=== PATIENT | male | born 1950 | race Caucasian/White ===

== ENCOUNTER → 2016-10-03 | Outpatient (CLI) | payer OTHER, MEDICAID | LOC: BHCLAF 10:15 | PROVIDERS: ATTEND Internal Medicine Cardiovascular Disease | DX: I25.10 Atherosclerotic heart disease of native coronary artery without angina pectoris (principal); I42.9 Cardiomyopathy, unspecified | CPT/HCPCS: 93005-PO ==

== ENCOUNTER → 2016-10-08 | Outpatient (CLI) | payer OTHER, MEDICAID | LOC: BHCLAF 09:15 | PROVIDERS: ATTEND Internal Medicine Cardiovascular Disease | DX: I42.9 Cardiomyopathy, unspecified (principal); I25.10 Atherosclerotic heart disease of native coronary artery without angina pectoris | CPT/HCPCS: 93306-PO ==

== ENCOUNTER → 2016-10-10 | Outpatient (CLI) | payer OTHER, MEDICAID | LOC: BHFA 11:30 | PROVIDERS: ATTEND Internal Medicine | DX: Z01.818 Encounter for other preprocedural examination (principal); I25.10 Atherosclerotic heart disease of native coronary artery without angina pectoris; I42.9 Cardiomyopathy, unspecified | CPT/HCPCS: 78452; 93017; 93306; A9500; J2785 ==

== ENCOUNTER → 2017-02-22 | Outpatient (CLI) | payer OTHER, MEDICAID | LOC: CIMAGING 10:14 | PROVIDERS: ATTEND Internal Medicine Cardiovascular Disease | DX: Z01.818 Encounter for other preprocedural examination (principal); R91.8 Other nonspecific abnormal finding of lung field; I25.118 Atherosclerotic heart disease of native coronary artery with other forms of angina pectoris; I42.9 Cardiomyopathy, unspecified | CPT/HCPCS: 71020-PO ==

== ENCOUNTER → 2017-09-12 | Outpatient (CLI) | payer OTHER, MEDICAID | LOC: BHLMT 16:15 | PROVIDERS: ATTEND Internal Medicine Cardiovascular Disease | DX: R06.02 Shortness of breath (principal); I25.10 Atherosclerotic heart disease of native coronary artery without angina pectoris | CPT/HCPCS: 93306-PO ==

== ENCOUNTER 2017-09-27 08:21 | Day surgery (SDC) | payer OTHER, MEDICAID ==
[2017-09-27] MEDS ORDERED: NS 1,000 ML IV ONE (08:33)
[2017-09-27] MEDS ORDERED: COSYNTROPIN 0.25 MG/2 ML SYRINGE IVP ONE (08:33)
== END 2017-09-27 10:45 | disposition home or self-care (01) ==
LOC: FCATH 08:21
PROVIDERS: ATTEND Internal Medicine Cardiovascular Disease
DX: I50.22 Chronic systolic (congestive) heart failure (principal); I11.0 Hypertensive heart disease with heart failure; I25.118 Atherosclerotic heart disease of native coronary artery with other forms of angina pectoris; I95.1 Orthostatic hypotension; I77.810 Thoracic aortic ectasia; Z95.5 Presence of coronary angioplasty implant and graft; Z91.81 History of falling; M54.9 Dorsalgia, unspecified
CPT/HCPCS: J0834

== ENCOUNTER 2017-09-27 10:51 | Emergency (ER) | payer OTHER, MEDICAID ==
--- NOTE | 2017-09-27 11:57 | EDPHY ---
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 - Personal History Current Tetanus Diphtheria and Acellular Pertussis (TDAP): Yes - Medical/Surgical History Hx Asthma: No Hx Chronic Respiratory Disease: No Hx Diabetes: No Hx Cardiac Disease: Yes Hx Renal Disease: No Hx Cirrhosis: No Hx Alcoholism: No Hx HIV/AIDS: No Hx Splenectomy or Spleen Trauma: No Other PMH: Back surgery Mar 2017. 4 x heart attacks. Stents. 2 x strokes. 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 He has noticed progressive erythema, pain and new purulent foul-smelling discharge from the tip. Today he was in the hospital for outpatient laboratory testing when a staff member noticed erythema to the digit and recommend he come to the ER for evaluation. He has reproducible pain with movement of the digit. He denies: Fever, chest pain, dyspnea, malaise chills, nausea, vomiting, axillary adenopathy or pain. 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 Appears to be in no acute distress. Eating lunch when I enter the room 2) HEAD: Normocephalic, atraumatic 3) HEENT: Pupils equal, round, reactive to light bilaterally. Sclera anicteric. 4) NECK: Full range of motion, no meningeal signs. 5) LUNGS: Clear auscultation bilaterally, no wheezes, no rhonchi, no retractions. 6) HEART: Regular rate and rhythm, no murmur, no heave, no gallop. 7) ABDOMEN: No guarding, no rebound, no focal tenderness, 8) MUSCULOSKELETAL: Left upper extremity: The patient's left pinky digit he has positive kanavel sign, erythema, swelling, pain along the flexor tendon sheath, purulent discharge from the tip which is cultured. No lymphangitic streaking. No clinical extension to the hand . No crepitus No epitrochlear or axillary adenopathy 9) BACK: , no visual or palpable abnormality. 10) SKIN: No rash, no petechiae. 11) Psychiatric: Patient is oriented X 3, there is no agitation. DIFFERENTIAL DIAGNOSIS: In no particular order including but not limited to cellulitis, felon, paronychia, infectious tenosynovitis, abscess (Keke De Anda) Constitutional: Initial Vital Signs Temperature (C) 36.9 C 09/27/17 10:56 Heart Rate 65 09/27/17 10:56 Respiratory Rate 16 09/27/17 10:56 Blood Pressure 102/67 09/27/17 10:56 O2 Sat (%) 96 09/27/17 10:56 O2 Delivery Mode Room Air Allergies/Adverse Reactions: No Allergies [NKDA] Allergy (Verified 09/24/17 17:57) Home Medications: Medication Instructions Recorded Aspirin 09/27/17 Cephalexin [Keflex] 500 mg PO TID 10 Days cap 09/27/17 Hydrocodone-Ibuprofen 10-200 09/27/17 Metoprolol Oral Susp (*) 09/27/17 Midodrine HCl 09/27/17 NITRO-DUR 09/27/17 Oxycodone HCl 09/27/17 Sulfamethox/Tmp 800/160 mg 1 tab PO BID@1000,2200 10 Days tab 09/27/17 [Bactrim Ds] traZODone 09/27/17 Medical Decision Making - Diagnostics Imaging Results: Images reviewed myself and also reviewed with the patient (Keke De Anda) ED Course/Re-evaluation: I have evaluated the patient in the ER. I have stressed to him my concern over his current presenting signs to his finger, namely he has positive kanavel sign with visible purulent discharge from the tip of the finger in the presence of trauma. In addition his x-ray shows possible osteomyelitis. I have recommended admission for IV antibiotics, Hand surgery consultation, possible surgical intervention. He declines this stating that he wants a trial of oral antibiotics and will return to the ER if it is not improved. States that he does not have time to be admitted to the hospital. I stressed to him the importance of hospitalization and informed him that failure to address this further on inpatient basis may result in permanent and chronic disability of his 5th digit and his left hand informed him that he may lose his finger and/or hand, may require long-term antibiotics and long-term care. He verbalized understanding and continues to decline in patient care. I believe him to have decision-making capacity. I saw this patient independently based on established practice protocols. Care of patient under supervision of secondary supervising physician Dr Breana Griffiths with whom I discussed case who also examined patient. In my professional opinion, I think the patient necessitates further evaluation on inpatient basis In my professional opinion, the patient fully understands the risks to their health and well-being by leaving the emergency department AGAINST MEDICAL ADVICE. Patient states that he would like to leave would like a trial of outpatient antibiotics for 24 hr. By leaving AGAINST MEDICAL ADVICE the patient has verbalized understanding and acceptance of the risks of leaving AGAINST MEDICAL ADVICE, including, but not limited to, , permanent and chronic disability, permanent and chronic loss of income, and other situations and circumstances too numerous to mention herein. He has been informed that he may lose permanent functionality, may necessitate amputation of the digit and/ or hand this is left untreated. I think the patient has the capacity to fully understand these risks. I have offered ample opportunity to answer questions. I have offered to speak with family and/or friends regarding this issue as well. He has has been informed that they are welcome to return to emergency department at any point for reevaluation. (Keke De Anda Kat) Other Provider: The patient was evaluated and managed by the Physician Hydramatic Mechanic. I discussed the patient's presentation and course with the midlevel provider with them and agree with the evaluation. My co-signature indicates that I have reviewed this chart and I agree with the findings and plan of care as documented. I am the secondary supervising physician. The patient well aware that the his finger is significantly infected and a recommendations is that he needs to be admitted to the hospital for IV antibiotics and potential operative exploration. He would prefer to be discharged and take oral antibiotics. He understands he may return to the emergency department at any point and be admitted to the hospital if he so desires. (Breana Griffiths) - Data Points Microbiology Results: MICROBIOLOGY 09/27/17 12:27 Finger - Swab Gram Stain - Final 09/27/17 12:27 Finger - Swab Wound Culture - Preliminary Staphylococcus Aureus Departure - Departure Disposition: Against Medical Advice Clinical Impression: Finger infection, Infectious tenosynovitis Condition: Good Instructions: Cellulitis (ED) Additional Instructions: You have a bad infection of your pinky finger. I recommend you be hospitalized. You have declined this. You May Lose Your Finger Without Further More Aggressive Treatment. This May Result In Permanent, Long-Term Disability To Her Finger And/Or Hand.. Please Return To The Er If You Change Of Mind. Referrals: Nagi Razo MD [Medical Doctor] - 09/30/17 Prescriptions: Cephalexin [Keflex] 500 mg PO TID 10 Days cap Sulfamethox/Tmp 800/160 mg [Bactrim Ds] 1 tab PO BID@1000,2200 10 Days tab
[2017-09-27 12:29] VITALS: BP 115/87
== END 2017-09-27 12:29 | disposition left against medical advice (07) ==
DX: M65.18 Other infective (teno)synovitis, other site (principal); Z79.82 Long term (current) use of aspirin